=== PATIENT | female | born 1960 | race Caucasian/White ===

== ENCOUNTER 2017-09-20 11:27 | Emergency (ER) | payer OTHER ==
[~2017-09-20] VITALS: Ht 170.2 cm; Wt 65.8 kg
[2017-09-20 12:11] LABS: ABSOLUTE BASOPHIL COUNT 0 /CUMM (0.0-0.2); ABSOLUTE EOSINOPHIL COUNT 0 /CUMM (0.0-0.7); ABSOLUTE GRANULOCYTE CT 2.3 /CUMM (1.4-6.5); ABSOLUTE LYMPH COUNT 0.9 /CUMM (1.2-3.4); ABSOLUTE MONOCYTE COUNT 0.4 /CUMM (0.10-0.60); BASOPHIL % 0.3 % (0.0-2.0); EOSINOPHIL % 0.9 % (0-5); GRANULOCYTE % 63.1 % (42.2-75.2); HEMATOCRIT 42.2 % (37-47); MEAN CORPUSCULAR HGB 30.6 PG (27.0-31.0); MEAN CORPUSCULAR HGB CONC 33.5 G/DL (33.0-37.0); MEAN CORPUSCULAR VOLUME 91.6 FL (81.0-99.0); MEAN PLATELET VOLUME 8.1 FL (7.4-10.4); PLATELET COUNT 288 /CUMM (130-400); RBC DISTRIBUTION WIDTH 15.2 % (11.5-14.5); RED BLOOD CELL CT 4.61 /CUMM (4.20-5.40); WHITE BLOOD CELL COUNT 3.7 /CUMM (4.8-10.8)
--- NOTE | 2017-09-20 12:15 | ED GI/GU/ABDOMINAL COMPLAINT ---
History of Present Illness General Chief Complaint: General Adult Stated Complaint: BLOOD IN STOOL CHILLS Source: patient, family Exam Limitations: no limitations Vital Signs & Intake/Output Vital Signs & Intake/Output Vital Signs Date Time Temp Pulse Resp B/P B/P Pulse O2 O2 Flow FiO2 Mean Ox Delivery Rate 09/20 1402 98.2 76 18 158/74 100 Room Air 09/20 1146 98.4 84 20 142/74 99 Allergies Coded Allergies: No Known Drug Allergies (Intermediate, NONE 09/20/17) Reconcile Medications Atorvastatin Calcium 10 MG TABLET 1 TAB PO DAILY CHOLESTEROL (Reported) Fluoxetine HCl 40 MG CAPSULE 2 CAP PO QAM ANXIETY/DEPRESSION (Reported) Levothyroxine Sodium (Synthroid) 50 MCG TABLET 4 TAB PO QPM THYROID (Reported ) Sumatriptan Succinate 100 MG TABLET 1 TAB PO AD PRN MIGRAINES (Reported) may repeat in 2 hours; do not exceed 200 mg in 24 hours Vit C/Vit E/Lutein/Min/Blacklick-3 (Ocuvite Softgel) 150 MG-30 UNIT-5 MG-150 MG CAPSULE 1 SGL PO DAILY SUPPLEMENT (Reported) Triage Note: C/O LOWER ABDOMINAL PAIN AND BLOODY DIARRHEA SINCE LAST PM, HAS NOT VOMITIED, BUT IS NAUSEATED. STATES SHE ATE MUSSELS AT A LOCAL [employer] 2 NIGHTS AGO. Triage Nurses Notes Reviewed? yes ? N Is pt currently ? No HPI: Patient ate muscles on . Patient then had more seafood yesterday however she ate the same thing as everybody else. Patient states that shortly thereafter she developed very watery diarrhea. Patient states that at 3:00 in the morning she began passing blood rectally. She has only had bright red blood per rectum since then. Patient has a crampy left lower quadrant pain. There is no radiation. The pain is constant however it does decrease after she moves her bowels. She states that she occasionally feels nauseous but there is been no vomiting. There are no fevers or chills. She rates the cramps as mild to moderate on pain scale. Past History Travel History Traveled to [place] past 21 day No Medical History Any Pertinent Medical History? see below for history EENT: mrsa Respiratory: asthma Endocrine: hypothyroidism Surgical History Surgical History: non-contributory Psychosocial History What is your primary language Mongolian Tobacco Use: Never used ETOH Use: occasional use Illicit Drug Use: denies illicit drug use Family History Hx Contributory? No Review of Systems Review of Systems Constitutional: Reports: no symptoms. EENTM: Reports: no symptoms. Respiratory: Reports: no symptoms. Cardiovascular: Reports: no symptoms. GI: Reports: see HPI, abdominal pain, nausea, bloody stool. Genitourinary: Reports: no symptoms. Musculoskeletal: Reports: no symptoms. Skin: Reports: no symptoms. Neurological/Psychological: Reports: no symptoms. Hematologic/Endocrine: Reports: no symptoms. Immunologic/Allergic: Reports: no symptoms. All Other Systems: Reviewed and Negative Physical Exam Physical Exam General Appearance: well developed/nourished, alert, awake, mild distress Head: atraumatic, normal appearance Eyes: Bilateral: PERRL, EOMI. Ears, Nose, Throat, Mouth: hearing grossly normal, dry mucosa Neck: normal inspection, supple, full range of motion Respiratory: normal breath sounds, chest non-tender, no respiratory distress, lungs clear Cardiovascular: regular rate/rhythm, normal peripheral pulses Gastrointestinal: normal bowel sounds, soft, non-tender, no organomegaly Back: normal inspection, normal range of motion Extremities: normal range of motion Neurologic/Psych: no motor/sensory deficits, awake, alert, oriented x 3, normal gait, normal mood/affect Skin: intact, normal color, warm/dry Core Measures ACS in differential dx? No Sepsis Present: No Sepsis Focused Exam Completed? No Progress Differential Diagnosis: diverticulitis, ischemic bowel, inflamm bowel dis, pancreatitis Plan of Care: Orders Procedure Date/time Status STOOL: R/O YERSINIA 09/20 1208 Active STOOL:R/O VIBRIO 09/20 1208 Active CULTURE,STOOL 09/20 1208 Active C.DIFFICILE 09/20 1208 Active URINALYSIS 09/20 1142 Active LIPASE 09/20 1142 Complete COMPREHENSIVE METABOLIC PANEL 09/20 1142 Complete CBC WITHOUT DIFFERENTIAL 09/20 1142 Complete AMYLASE 09/20 1142 Complete Laboratory Tests 09/20/17 1158: Anion Gap 8, Estimated GFR > 60, BUN/Creatinine Ratio 12.5, Glucose 127 H, Calcium 9.9, Total Bilirubin 0.5, AST 33, ALT 34, Alkaline Phosphatase 84, Total Protein 7.1, Albumin 4.3, Globulin 2.8, Albumin/Globulin Ratio 1.5, Amylase 46, Lipase 44, CBC w Diff NO MAN DIFF REQ, RBC 4.61, MCV 91.6, MCH 30.6, MCHC 33.5, RDW 15.2 H, MPV 8.1, Gran % 63.1, Lymphocytes % 25.4, Monocytes % 10.3 H, Eosinophils % 0.9, Basophils % 0.3, Absolute Granulocytes 2.3, Absolute Lymphocytes 0.9 L, Absolute Monocytes 0.4, Absolute Eosinophils 0, Absolute Basophils 0 Microbiology 09/21 1207 GI: Vibrio Culture - CAN Cancelled: MERGED 09/21 1207 STOOL: Clostridium difficile Toxin A & B - RES 09/21 1207 STOOL: Vibrio Culture - RES 09/21 1207 STOOL: Yersinia Culture - RES 09/21 1207 STOOL: Stool Culture - RES Diagnostic Imaging: Viewed by Me: CT Scan. Discussed w/RAD: CT Scan. Radiology Impression: PATIENT: MARGOT DUNCAN PRESENT AGE: 57 PATIENT ACCOUNT NO: [id number] : 56 LOCATION: [facility] ORDERING PHYSICIAN: Larry North MD SERVICE DATE: 09/20/17 EXAM TYPE: CAT - CT ABD & PELVIS W IV CONTRAST EXAMINATION: CT ABDOMEN AND PELVIS WITH CONTRAST CLINICAL INFORMATION: Left lower quadrant pain. Bright red blood per rectum. COMPARISON: None TECHNIQUE: Multidetector volumetric imaging was performed of the abdomen and pelvis following IV administration of 95 mL of Optiray 320 intravenous contrast. Sagittal and coronal reformatted images were obtained on the technologist's workstation. DLP: 282 mGy-cm FINDINGS: LUNG BASES : There is a 5 mm pulmonary nodule in the medial aspect of the right lower lobe. Lung bases otherwise clear. LIVER, GALLBLADDER, AND BILIARY TREE: The liver is normal in size, shape, and attenuation. No focal hepatic lesion or biliary ductal dilatation is present. The gallbladder is unremarkable with no evidence of radiopaque gallstones, gallbladder wall thickening, or obvious pericholecystic inflammatory changes. PANCREAS: Unremarkable. SPLEEN: Unremarkable. ADRENAL GLANDS: Unremarkable. KIDNEYS AND URETERS: A 2.1 cm water density cyst is present in the interpolar region of the left kidney. No suspicious renal lesions. Kidneys normal in size with symmetric enhancement. No perinephric stranding. No hydronephrosis or nephrolithiasis. Ureters are unremarkable. BLADDER: Unremarkable. GASTROINTESTINAL TRACT: There is mild wall thickening, mucosal hyperenhancement, and mural stratification in the left hemicolon, most pronounced in the descending colon. There is associated pericolonic fat stranding no intra-articular free air or peritoneal free fluid. Stomach, small bowel, and colon are normal in caliber. Normal appendix. ABDOMINAL WALL: No significant hernia is appreciated. LYMPH NODES: Normal. VASCULAR: A few atherosclerotic calcifications are present in the abdominal aorta and iliac arteries. Vertebral arteries appear widely patent. No aneurysmal dilatation. PELVIC VISCERA: The uterus and adnexa are unremarkable. OSSEOUS STRUCTURES: Mild degenerative disc disease at L2-L3 and L5-S1. No fracture or malalignment. A Schmorl's node is present in the inferior endplate of L2. No acute osseous abnormalities are identified. IMPRESSION: 1. Mild colitis in the descending colon with involvement of the rest of the left hemicolon to a lesser extent. This may be infectious or inflammatory in nature. Ischemic colitis is unlikely given the absence of appreciable mesenteric vascular disease, though vasculitis may be occult by CT. 2. A 5 mm pulmonary nodule in the right lower lobe. According to the UPDATED 2017 Fleischner Society recommendations, the advised follow-up imaging for solid nodules < 6 mm is: LOW RISK PATIENT: No routine follow-up. HIGH RISK PATIENT: Optional CT at 12 months. DICTATED BY: Marcelo Sullivan MD DATE/TIME DICTATED:09/20/171448 AX SURVEY WORKER:EJ DATE/TIME TRANSCRIBED:09/20/171448 CONFIDENTIAL, DO NOT COPY WITHOUT APPROPRIATE AUTHORIZATION. <Electronically signed in Other Vendor System> SIGNED BY: Marcelo Sullivan MD 09/20/17 1500 Initial ED EKG: none Comments: Patient had a bloody bowel movement in the emergency department. No stool was evident. Discussed with Dr. Mcmahon. Patient is stable for discharge. Departure Departure Disposition: HOME OR SELF CARE Condition: Stable Clinical Impression Primary Impression: Colitis Referrals: Ruth Batres MD (PCP/Family) Additional Instructions: Return if he started to feel dizzy, lightheaded, pain worsens, bleeding worsens or for any other concerns. Departure Forms: Customer Survey General Discharge Information Prescriptions: Current Visit Scripts Ondansetron (Zofran Odt) 1 TAB SL TID PRN NAUSEA #10 TAB
[2017-09-20] MEDS ORDERED: ATORVASTATIN CA10 M1 PO (12:28)
[2017-09-20] MEDS ORDERED: FLUOXETINE HCL40 M1 PO (12:28)
[2017-09-20] MEDS ORDERED: SUMATRIPTAN SU100 M1 PO (12:29)
[2017-09-20] MEDS ORDERED: SYNTHROID50 MCG PO (12:29)
[2017-09-20] MEDS ORDERED: OCUVITE SOFTGE1 EACH PO (12:30)
--- NOTE | 2017-09-20 15:00 | CT SCAN REPORT ---
EXAMINATION: CT ABDOMEN AND PELVIS WITH CONTRAST CLINICAL INFORMATION: Left lower quadrant pain. Bright red blood per rectum. COMPARISON: None TECHNIQUE: Multidetector volumetric imaging was performed of the abdomen and pelvis following IV administration of 95 mL of Optiray 320 intravenous contrast. Sagittal and coronal reformatted images were obtained on the technologist's workstation. DLP: 282 mGy-cm FINDINGS: LUNG BASES: There is a 5 mm pulmonary nodule in the medial aspect of the right lower lobe. Lung bases otherwise clear. LIVER, GALLBLADDER, AND BILIARY TREE: The liver is normal in size, shape, and attenuation. No focal hepatic lesion or biliary ductal dilatation is present. The gallbladder is unremarkable with no evidence of radiopaque gallstones, gallbladder wall thickening, or obvious pericholecystic inflammatory changes. PANCREAS: Unremarkable. SPLEEN: Unremarkable. ADRENAL GLANDS: Unremarkable. KIDNEYS AND URETERS: A 2.1 cm water density cyst is present in the interpolar region of the left kidney. No suspicious renal lesions. Kidneys normal in size with symmetric enhancement. No perinephric stranding. No hydronephrosis or nephrolithiasis. Ureters are unremarkable. BLADDER: Unremarkable. GASTROINTESTINAL TRACT: There is mild wall thickening, mucosal hyperenhancement, and mural stratification in the left hemicolon, most pronounced in the descending colon. There is associated pericolonic fat stranding no intra-articular free air or peritoneal free fluid. Stomach, small bowel, and colon are normal in caliber. Normal appendix. ABDOMINAL WALL: No significant hernia is appreciated. LYMPH NODES: Normal. VASCULAR: A few atherosclerotic calcifications are present in the abdominal aorta and iliac arteries. Vertebral arteries appear widely patent. No aneurysmal dilatation. PELVIC VISCERA: The uterus and adnexa are unremarkable. OSSEOUS STRUCTURES: Mild degenerative disc disease at L2-L3 and L5-S1. No fracture or malalignment. A Schmorl's node is present in the inferior endplate of L2. No acute osseous abnormalities are identified. IMPRESSION: 1. Mild colitis in the descending colon with involvement of the rest of the left hemicolon to a lesser extent. This may be infectious or inflammatory in nature. Ischemic colitis is unlikely given the absence of appreciable mesenteric vascular disease, though vasculitis may be occult by CT. 2. A 5 mm pulmonary nodule in the right lower lobe. According to the UPDATED 2017 Fleischner Society recommendations, the advised follow-up imaging for solid nodules < 6 mm is: LOW RISK PATIENT: No routine follow-up. HIGH RISK PATIENT: Optional CT at 12 months.
[2017-09-20] MEDS ORDERED: ZOFRAN ODT4 M1 SL (15:22)
[2017-09-20 15:28] VITALS: BP 146/85
== END 2017-09-20 15:28 ==
LOC: ERH 11:27
PROVIDERS: Physician Assistant
DX: K52.9 Noninfective gastroenteritis and colitis, unspecified (principal)
CPT/HCPCS: 74177; 87015; 87045; 87899; 87899-59; 96374; J2405